=== PATIENT | female | born 1990 | race American Indian/Alaskan Native ===

== ENCOUNTER 2018-11-02 12:58 | Outpatient (CLI) | payer OTHER | END 2018-11-02 13:23 | disposition home or self-care (01) | LOC: SONOGRAMA 12:58 | DX: Z34.03 Encounter for supervision of normal first pregnancy, third trimester (principal) ==

== ENCOUNTER 2018-12-21 22:46 | Inpatient (IN) | payer OTHER ==
[~2018-12-21] VITALS: Ht 157.5 cm; Wt 77.1 kg
[2018-12-22] MEDS ORDERED: OBSTETRIX DHA1 EACH PO (00:02)
[2018-12-24] MEDS ORDERED: DOCUSATE SODIU100 MG PO (08:22)
== END 2018-12-24 12:39 | disposition home or self-care (01) | DRG 807 ==
LOC: OB/GYN 22:46 → LDR 22:46 → OB/GYN 12-22 00:10 → LDR 12-22 12:54 → OB/GYN 12-23 02:01
PROVIDERS: ADMIT Obstetrics & Gynecology
PROC: 4A1HXCZ Monitoring of Products of Conception, Cardiac Rate, External Approach (ICD-10-PCS; 2018-12-21)
PROC: 10E0XZZ Delivery of Products of Conception, External Approach (ICD-10-PCS; principal; 2018-12-22)
PROC: 0KQM0ZZ Repair Perineum Muscle, Open Approach (ICD-10-PCS; 2018-12-22)
PROC: 4A033R1 Measurement of Arterial Saturation, Peripheral, Percutaneous Approach (ICD-10-PCS; 2018-12-22)
DX: O70.1 Second degree perineal laceration during delivery (principal); Z37.0 Single live birth; Z22.330 Carrier of Group B streptococcus; Z3A.40 40 weeks gestation of pregnancy